=== PATIENT | male | born 1980 | race African-American/Black ===

== ENCOUNTER → 2018-07-10 | Emergency (ER) | payer OTHER | END | disposition left against medical advice (07) | LOC: ER 23:25 | DX: S01.81XA Laceration without foreign body of other part of head, initial encounter (principal); Z53.21 Procedure and treatment not carried out due to patient leaving prior to being seen by health care provider; X58.XXXA Exposure to other specified factors, initial encounter; Y93.89 Activity, other specified; Y99.8 Other external cause status; Y92.89 Other specified places as the place of occurrence of the external cause ==